=== PATIENT | male | born 1970 | race Two or more races ===

== ENCOUNTER 2022-02-11 10:31 | Emergency (ER) | payer MEDICAID, OTHER ==
[~2022-02-11] VITALS: Ht 165.1 cm; Wt 66.7 kg
[2022-02-11 10:32] VITALS: BP 120/82
[2022-02-11] MEDS ORDERED: ACETAMINOPHEN 325 MG TAB PO ONE (14:15)
== END 2022-02-11 14:24 | disposition home or self-care (01) ==
LOC: ER 10:31
DX: S01.01XA Laceration without foreign body of scalp, initial encounter (principal); W22.8XXA Striking against or struck by other objects, initial encounter; Y93.89 Activity, other specified; Y92.89 Other specified places as the place of occurrence of the external cause; Y99.8 Other external cause status
CPT/HCPCS: 12002